=== PATIENT | male | born 1960 | race Caucasian/White ===

== ENCOUNTER 2017-02-25 12:05 | Inpatient (IN) | payer OTHER ==
[~2017-02-25] VITALS: Ht 165.1 cm; Wt 95.2 kg
[~2017-02-25 12:05] MED LIST: ASAEC PO; CLONAZEPAM1 M1 PO; DULO60CA42 PO; FLUO40CA12 PO; GLU500 PO; INSU100C8 SQ; INSU100V10 SQ; LOP600 PO; LORA10CA PO; SIMV80TA PO; TAM4 PO; ZES20 PO
[2017-02-25] MEDS ORDERED: Magnesium Hydroxide 10 mL Oral Concentration PO PRN ×2 (14:30→15:50)
[2017-02-25] MEDS ORDERED: Benzocaine-Menthol Lozenge 2/Pkg PO PRN ×2 (14:30→15:50)
[2017-02-25] MEDS ORDERED: [UNRECOGNIZED DRUG - REMARK] SQ SCH (14:30)
[2017-02-25] MEDS ORDERED: Alum-Mag Hydrox-Simeth 30 mL Suspension PO PRN ×2 (14:30→15:50)
[2017-02-25] MEDS ORDERED: [UNRECOGNIZED DRUG - REMARK] PO SCH (14:30)
[2017-02-25] MEDS ORDERED: Insulin GLARgine 100 Unit/mL Syringe SUBQ SCH (14:30)
[2017-02-25] MEDS: DULoxetine 30 mg DR Capsule PO SCH (18:13)
[2017-02-25 18:33] VITALS: BP 145/96; PULSE 115
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
[2017-02-26] MEDS: DULoxetine 30 mg DR Capsule PO SCH (08:57)
[2017-02-26 14:20] VITALS: BP 151/96; PULSE 102; RESP 18
--- NOTE | 2017-02-26 14:44 | NUR ---
Human Resources Office Manager/Counselor S:"I'm not really sure what to say or how to act." O: Patient did not express any HI or SI, and no AVH, but then stated that he will occasionally hear his mother's voice. He rated his anxiety at a 7/8 and his depression at a 6/7. He slept for 6.5 hours. A: Patient was very anxious and stated that he is uncomfortable with the fact that this chief underwriter is currently . He stated that he is just not used to being exposed to women, and also expressed anxiety over being around female staff. During the check in, the patient had his BP taken, which was high due to his evident unease and high rate of anxiety. He attended both structured groups and has been out in the milieu. He stated that he is not sure what he will do once he is released and may take some time off work. P: Follow care plan and coordinate with outpatient providers.
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
--- NOTE | 2017-02-26 15:52 | NUR ---
[id number]. nurs. S: "My father did things the way, everything I did was the wrong way, so I did nothing I would get yelled at anyway and that is what I am doing now ,nothing" O: Pt attending group and participating in conversation focused on loss of his mother in September and guilt about the fact that she stated she "was done with living " after she had fall and was hospitalized. Pt stating he does not know how to take care of mothers estate and bills etc. Pt states that family are out of state and he does not think they are coming to help. Pt states he has not lived on his own and is not comfortable trying to do so. Pt tearful and focused on loss of mother and feeling helpless. A: pt grieving, has concrete thinking, finding struc and protcol of unit difficult. P:CNCP
[2017-02-26] MEDS ORDERED: Insulin GLARgine 100 Unit/mL Syringe SUBQ SCH (20:30)
--- NOTE | 2017-02-27 05:07 | NUR ---
nursing, nights, 11-7 s/o- has appeared to sleep after 2200 during q 15 minute assessments. a- no apparent distress. p- monitor behavior/emotional state, quality, times and amount of sleep, use and effect of medication. micah
[2017-02-27] MEDS: DULoxetine 30 mg DR Capsule PO SCH (08:56)
[2017-02-27 14:34] VITALS: BP 115/88; PULSE 108; RESP 18
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
--- NOTE | 2017-02-27 18:58 | NUR ---
Community Services Coordinator/Counselor S:"I'm meticulous, pay close attention to detail, and I'm a hard worker." O: Patient slept 8 hours last night per staff. He denies S/I and H/I. He also denies auditory and visual hallucinations. Depression is 1/10 and anxiety is 0/10. When asked her mood, patient stated, "I'm relaxed." A: Patient is cooperative, flat affect, dysthymic, limited insight, limited judgment. P:Follow care plan and coordinate with outpatient providers.
--- NOTE | 2017-02-27 21:22 | NUR ---
Observations 0900 - 2130 Pt affect and mood was flat, labile and anxious. Pt rested in bed and was isolating in room most of the day. Pt speech and eye contact was good. Pt is polite and cooperative. Pt did not attend group or unit activities. Pt is minimally social with peers and mostly keeps to himself. Pt maintained behavior throughout the shift. Pt was offered a shower but he refused. Pt was observed every 15 minutes as ordered throughout the shift.
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
[2017-02-28] MEDS: DULoxetine 30 mg DR Capsule PO SCH (08:11)
[2017-02-28 08:52] VITALS: BP 125/79; PULSE 106; RESP 16
--- NOTE | 2017-02-28 18:34 | NUR ---
NURS Note DAY Mood: Emotionally labile. At 1100, "I'm not depressed. I'm in a good mood." Depression 09/16, anxiety 09/16. At 1700, "No one can help me. I'm angry with this whole process. Nobody and nothing can help me." Endorsed depression, did not rate. Affect: Restricted. Thought Process/Content: "The doctor's been telling people that I wanted to kill myself, I don't know where he got that idea." Endorses thought that he would be better off , but denies other thoughts of suicide and denies any plans to self harm. Denies HI. Denies AH, VH. Behavior: Pt out in common areas much of shift, participated in groups. Pt appeared angry after a fellow pt changed the TV station without asking. When the typewriter assembler tried to discuss this with him, pt became visibly agitated stood up, and walked off to room. PRNs/NURS: After the 1700 incident with TV, pt reported feeling trapped on the unit and insisted that no one told him anything that no one was trying to help him. Surgical Garment Assembly Supervisor explained to pt the significance of his voluntary status, which pt seemed to comprehend.
--- NOTE | 2017-02-28 19:59 | NUR ---
MHA Note D- Patient attended portions of structured groups and activities with various levels of participation. He ate all of his meals and snacks. Patient did not overtly attend to any ADLs and appears disheveled and unkempt. A- Patient spent most of the shift in his room with periods in the dining room. He was not social with staff or peers on the unit and remained isolative for the duration of the shift. He was irritable upon engagement and appears to have disorganize thoughts, potentially due to being so aggitated. Patient was unwilling to engage regarding his mental health, answering in short yaz replies. He denies any suidical or homicidal ideation or any thought disturbances. Additionally, he is irritable regarding the 15 minute checks using profanity when staff informed him what we were doing. "I don't care. St." P- Continue current treatment plan.
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
--- NOTE | 2017-03-01 06:54 | NUR ---
Nursing note: casino shift manager Patient appears to be sleeping on safety checks during the night. Voices no complaints.
[2017-03-01] MEDS: DULoxetine 30 mg DR Capsule PO SCH (08:31)
[2017-03-01 09:30] VITALS: BP 119/63; PULSE 108; RESP 17
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
--- NOTE | 2017-03-01 18:07 | NUR ---
Observations 0900 - 2130 Pt affect and mood was flat, labile, emotional and anxious. Pt rested in bed and was isolating in room part of the day. Pt did come out for meals and watched part of the [employer] 3D game. Pt also read a little bit while sitting at table in milieu. Pt speech and eye contact was ok. Pt is polite and cooperative when approached. Pt attended group or unit activities. Pt is minimally social with peers and mostly keeps to himself. Pt maintained behavior throughout the shift. Pt attended meals in D.R and ate 100% of his meals. Pt was offered a shower but he refused. Pt was observed every 15 minutes as ordered throughout the shift.
--- NOTE | 2017-03-02 05:09 | NUR ---
Nursing Noc Pt retired to bed early and slept through the night with no noted distress or awakening per protocol checks. Total sleep over 9.5 hours.
[2017-03-02] MEDS: DULoxetine 30 mg DR Capsule PO SCH (08:41)
[2017-03-02 10:00] VITALS: BP 116/75; PULSE 111; RESP 24
--- NOTE | 2017-03-02 11:28 | PCM.DIMED ---
Discharge Instructions Date of Service Mar 02, 2017 Dates of Hospitalization Feb 25, 2017 at 14:00 Discharge Diagnosis Discharge Diagnosis AXIS I: 1. Major depressive disorder, recurrent. 2. Autism spectrum disorder AXIS II: None. AXIS III: 1. Diabetes. 2. Hypertension. 3. Glaucoma 4. Benign prostatic hyperplasia 5. Hyperlipidemia AXIS IV: Moderate. AXIS V: Global Assessment of Functioning equal to 50. Medication Instructions Additional med instructions Discuss with your provider increasing your glipizide to 5mg twice a day. Diet Discharge Diet: Heart Healthy, Diabetic Activity Discharge Activity: No restrictions Call your provider Call your provider for: Excessive diarrhea Patient Instructions Patient Instructions Should you have any thoughts of harming yourself or others, please call the crisis line, your provider, 911, or go to the nearest Emergency Department. Do not change or discontinue your medications without discussing with your provider. You have been given a prescription for 30 days supply of your new medication Follow-up plan Psychiatric prescriber Dr. Dotty Hdz Awaiting appointment in next 1-[address] Wang Schultz Per Counselor discharge plan Therapist Dr. Plasencia on 03/03/17 at 11am Edgar Sadler MD Mar 02, 2017 11:28
[2017-03-02] MEDS ORDERED: LATA2.5D5 BOTH_EYES (11:32)
[2017-03-02] MEDS ORDERED: LIT450 PO (11:32)
[2017-03-02] MEDS ORDERED: GLPZ5T PO (11:32)
--- NOTE | 2017-03-02 12:39 | NUR ---
NURS DISCHARGE NOTE Patient cooperative with discharge process. Acknowledges understanding of d/c instructions and has a copy with them upon leaving unit at 1220. Belongings accounted for and with patient. Prescriptions faxed to patients pharmacy. Patient denies harmful thoughts and hallucinations at this time.
--- NOTE | 2017-03-02 16:27 | NUR ---
Ag[employer] Manager/Counselor S:"I'm doing good today." O/A:Patient was discharged today. He will receive follow up care from his PCP and his Psychiatrist. He will receive a phonecall for an appt. from Dr. Schultz, and a message was left for Dr. Dotty Hdz. Patient will follow up for appt day and time, and has all necessary info. He was provided his safety plan, discharge instructions and any necessary paperwork. Patient will return to his home. Before discharge he did not express any SI or HI, no AVH and rated his depression and anxiety at a 2/3. P: Follow discharge instructions.
--- NOTE | 2017-03-02 17:17 | NUR ---
Nursing: Hog Ribber confirmed with Dr Sadler, the MD who discharged Wilian, that Wilian is to continue to take the medications listed under the words, "Continue these medications" on the Patient Discharge Instructions, even though the words ..."Expunged Drug, Do Not Renew!" are on the following medications: Aspirin, Clonazepam, Duloxetine, Fluoxetine, Gemfibrozil, Lisinopril, Loratidine, Simvastin, and Tamulosin. Patient had understood this as he left the unit. Rashi Casiano RN
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
== END 2017-03-02 12:15 | disposition home or self-care (01) | DRG 885 ==
LOC: MHC 14:00
PROVIDERS: ADMIT Psychiatry & Neurology Psychiatry; ATTEND Psychiatry & Neurology Psychiatry
DX: F33.9 Major depressive disorder, recurrent, unspecified (principal); E11.9 Type 2 diabetes mellitus without complications; I10 Essential (primary) hypertension; H40.9 Unspecified glaucoma; N40.0 Benign prostatic hyperplasia without lower urinary tract symptoms; E78.5 Hyperlipidemia, unspecified; F84.5 Asperger's syndrome; Z79.4 Long term (current) use of insulin; Z63.4 Disappearance and death of family member